=== PATIENT | female | born 1955 ===

== ENCOUNTER 2018-06-15 08:06 | Outpatient (CLI) | payer BC, OTHER ==
--- NOTE | 2018-06-15 10:45 | PET ---
PET CT: HISTORY: 62-year-old female with large B-cell lymphoma. Patient is currently on chemotherapy. Exam requested f or restaging. TECHNIQUE: PET scanning with CT attenuation correction was performed from the base of the brain through the prox imal thighs following the intravenous administration of 10.4 mCi [id number] in the right antecubital fos sa. Imaging was performed after an uptake interval of 54 minutes. COMPARISON: None. FINDINGS: No rossana hypermetabolism is seen in the neck, chest, axilla, abdomen, pelvis, or inguinal regions. No abnormal FDG localization is seen in the 2.0 cm lymph node in the left axilla. No hypermetabolic pulmonary nodules, liver, adrenal, or skeletal lesions are seen. There is physiologic activity in the GI and tracts, and the visualized portions of the brain. The CT scan used for attenuation correction demonstrates no evidence of pleural effusions or ascites. IMPRESSION: No evidence of viable lymphoma. POS: [facility]
== END 2018-06-15 08:07 | disposition home or self-care (01) ==
LOC: PET 08:06
PROVIDERS: ATTEND Internal Medicine Hematology & Oncology
DX: C85.12 Unspecified B-cell lymphoma, intrathoracic lymph nodes (principal)
CPT/HCPCS: 78815; A9552